=== PATIENT | female | born 1965 | race Caucasian/White ===

== ENCOUNTER 2017-04-08 19:47 | Emergency (ER) | payer OTHER ==
[~2017-04-08] VITALS: Ht 170.1 cm; Wt 79.4 kg
[2017-04-08] MEDS ORDERED: SYNTHROID RP0.088 MG PO (19:55)
[2017-04-08] MEDS ORDERED: ALPRAZOLAM0.5 M3 PO (19:55)
[2017-04-08] MEDS ORDERED: DULOXETINE HCL30 MG PO (19:55)
[2017-04-08] MEDS ORDERED: ESOMEPRAZOLE MA40 M1 PO (19:55)
[2017-04-08] MEDS ORDERED: DAILY VITE W/IR1 TA1 PO (19:55)
[2017-04-08] MEDS ORDERED: IBUPROFEN600 MG PO (19:55)
[2017-04-08] MEDS ORDERED: TIZANIDINE HCL4 MG PO (19:56)
[2017-04-08] MEDS ORDERED: ZINC SULFATE220 MG PO (19:56)
[2017-04-08] MEDS ORDERED: HYDROCODONE BIT1 T20 PO (19:56)
[2017-04-08] MEDS ORDERED: NAPROSYN500 MG PO (22:18)
[2017-04-08] MEDS ORDERED: HYDROCODONE BIT1 T11 PO (22:18)
== END 2017-04-08 23:12 | disposition home or self-care (01) ==
LOC: ED 19:47
DX: S20.212A Contusion of left front wall of thorax, initial encounter (principal); Z90.49 Acquired absence of other specified parts of digestive tract; Z79.899 Other long term (current) drug therapy; W50.1XXA Accidental kick by another person, initial encounter; Y93.89 Activity, other specified; Y92.9 Unspecified place or not applicable; Y99.9 Unspecified external cause status

== ENCOUNTER → 2018-03-29 | Outpatient (CLI) | payer OTHER ==
[~2018-03-29] MED LIST: ALPRAZOLAM0.5 M3 PO; DAILY VITE W/IR1 TA1 PO; DULOXETINE HCL30 MG PO; ESOMEPRAZOLE MA40 M1 PO; HYDROCODONE BIT1 T11 PO; HYDROCODONE BIT1 T20 PO; IBUPROFEN600 MG PO; NAPROSYN500 MG PO; SYNTHROID RP0.088 MG PO; TIZANIDINE HCL4 MG PO; ZINC SULFATE220 MG PO
== END | disposition home or self-care (01) ==
LOC: RAD 10:26
DX: M47.897 Other spondylosis, lumbosacral region (principal); M51.36 Other intervertebral disc degeneration, lumbar region

== ENCOUNTER → 2019-05-18 | Outpatient (CLI) | payer MEDICARE, MEDICAID ==
[~2019-05-18] MED LIST changes: +ADDERALL 10 MG10 MG PO; +AMOXICILLIN500 M2 PO; +B COMPLEX1 EACH PO; +CUPRIMINE250 MG PO; +DIFLUCAN150 MG PO; +FISH OIL 1,0001 EAC4 PO; +MEDROL DOSEPAK4 MG PO; +NORCO 5-325 TA1 EACH PO; +ROBITUSSIN DM 105 ML PO; +VITAMIN D-32000 UNIT PO; +Zofran4 MG SL
--- NOTE | ~2019-05-18 | EKG ---
[place], [place] ELECTROCARDIOGRAM REPORT NAME: FRANNIE BELTRÁN UNIT #: [id number] ROOM: DOCTOR: EPIPHANY DRAFT REPORT BIRTHDATE: [birth year] [facility] Test Date: 2019-05-18 Test Time: 16:06:46 Pat Name: FRANNIE BELTRÁN Department: Room: Gender: F [employer] Maker: Laura Dietz : 1965 Requested By: MEG [place] Order Number: [id number] Reading MD: Elbert Lopez MD Measurements Intervals [place] Rate: 78 P: 59 [place]: 140 QRS: 19 QRSD: 89 T: 51 QT: 373 QTc: 425 Interpretive Statements Sinus rhythm Nonspecific ST abnormalities Electronically Signed On 05-19-2019 5:04:47 PDT by Elbert Lopez MD CM:EKGRPT:ELECTROCARDIOGRAM REPORT [id number] MEG URIBE DRAFT REPORT MEG [place]
== END | disposition home or self-care (01) ==
LOC: CARD 15:33
DX: Z51.81 Encounter for therapeutic drug level monitoring (principal); Z79.899 Other long term (current) drug therapy

== ENCOUNTER 2019-12-05 18:37 | Emergency (ER) | payer MEDICARE, MEDICAID ==
[~2019-12-05] VITALS: Ht 170.1 cm; Wt 81.6 kg
[2019-12-05 19:12] LABS: URINE AMPHETAMINES > 1000 (1000ng/ml); URINE BARBITURATES < 200 (200ng/ml); URINE BENZODIAZEPINES > 200 (200ng/ml); URINE CANNABINOIDS (THC) < 50 (50ng/ml); URINE COCAINE < 300 (300ng/ml); URINE METHADONE < 300 (300ng/ml); URINE OPIATES < 300 (300ng/ml); URINE PHENCYCLIDINE < 25 (25ng/ml)
[2019-12-05 19:31] LABS: COLOR YELLOW (YELLOW)
[2019-12-05 19:32] LABS: BILIRUBIN NEGATIVE (NEGATIVE); BLOOD 3+ (NEGATIVE); CLARITY SL CLOUDY (CLEAR); GLUCOSE NEGATIVE (NEGATIVE); KETONE TRACE (NEGATIVE); LEUKO ESTERASE TRACE (NEGATIVE); NITRITE NEGATIVE (NEGATIVE); UROBILINOGEN 0.2 E.U./dl (0.2-1.0)
[2019-12-05 19:42] LABS: BACTERIA 3+; COARSE GRANULAR CAST 0-2; MUCOUS TRACE; RBC 0-2 rbc/hpf (0-2); WBC 16-20 wbc/hpf (0-5)
[2019-12-05 20:06] LABS: BASO % 0.4 % (0.0-1.0); HEMOGLOBIN 14.5 g/dl (12.0-16.0); LYMPH # 2.9 10*3/uL (1.3-4.4); LYMPH % 29.7 % (27.0-41.0); MEAN CELL VOLUME 95.7 fl (81.0-99.0); MEAN CORPUSCULAR HGB 31.5 pg (27.0-31.0); MONO # 0.7 10*3/uL (0.1-1.0); MONO % 6.7 % (3.0-9.0); NEUT # 6.2 10*3/uL (2.3-7.9); PLATELET COUNT AUTOMATED 340 10*3/uL (130-400); RED CELL DISTRI WIDTH 11.9 % (0-14.5); WHITE BLOOD COUNT 9.8 10*3/uL (4.8-10.8)
[2019-12-05 20:26] LABS: ALBUMIN 4.2 gm/dl (3.1-4.5); ALKALINE PHOSPHATASE 85 U/L (45-117); BUN 9 mg/dl (7-24); CHLORIDE 105 mmol/L (98-107); CREATININE 1.12 mg/dL (0.55-1.02); POTASSIUM 4.1 mmol/L (3.5-5.1); SGOT/AST 75 IU/L (3-35); SGPT/ALT 47 U/L (12-78); SODIUM 139 mmol/L (136-145); TOTAL PROTEIN 8.7 gm/dL (6.4-8.2)
[2019-12-05] MEDS ORDERED: KENALOG 0.1%80 GM T (22:17)
[2019-12-05] MEDS ORDERED: SYNTHROID,LEVO88 MCG PO (22:17)
== END 2019-12-05 22:25 | disposition home or self-care (01) ==
LOC: ED 18:37
PROVIDERS: Emergency Medicine
DX: L30.1 Dyshidrosis [pompholyx] (principal); E03.9 Hypothyroidism, unspecified; E83.01 Wilson's disease; F22 Delusional disorders; F41.9 Anxiety disorder, unspecified; K21.9 Gastro-esophageal reflux disease without esophagitis; Z79.899 Other long term (current) drug therapy

== ENCOUNTER → 2020-10-18 | Outpatient (CLI) | payer MEDICARE, MEDICAID ==
[~2020-10-18] MED LIST changes: +KENALOG 0.1%80 GM T; +SYNTHROID,LEVO88 MCG PO
== END | disposition home or self-care (01) ==
LOC: US 10-03 10:30
PROVIDERS: ATTEND Nurse Practitioner Family
DX: E83.01 Wilson's disease (principal); R94.5 Abnormal results of liver function studies

== ENCOUNTER → 2022-07-08 | Outpatient (CLI) | payer OTHER | END | disposition home or self-care (01) | LOC: MAMMO 11:30 | PROVIDERS: ATTEND Internal Medicine | DX: Z12.31 Encounter for screening mammogram for malignant neoplasm of breast (principal) ==

== ENCOUNTER → 2023-01-21 | Outpatient (CLI) | payer OTHER ==
[2023-01-21 14:26] LABS: URINE AMPHETAMINES Negative (1000ng/ml); URINE BARBITURATES Negative (200ng/ml); URINE BENZODIAZEPINES Negative (200ng/ml); URINE CANNABINOIDS (THC) Negative (50ng/ml); URINE COCAINE Negative (300ng/ml); URINE METHADONE Negative (300ng/ml); URINE OPIATES Negative (300ng/ml); URINE PHENCYCLIDINE Negative (25ng/ml)
== END | disposition home or self-care (01) ==
LOC: LAB 13:34
PROVIDERS: ATTEND Psychiatry & Neurology Psychiatry
DX: R82.5 Elevated urine levels of drugs, medicaments and biological substances (principal); Z79.899 Other long term (current) drug therapy

== ENCOUNTER → 2023-12-01 | Outpatient (CLI) | payer OTHER ==
[2023-12-01 09:08] LABS: BASO % 0.5 % (0.0-1.0); EOS # 0.2 10*3/uL (0.0-0.4); EOS % 2.4 % (1.0-4.0); HEMATOCRIT 45.2 % (37.0-47.0); LYMPH # 3.9 10*3/uL (1.3-4.4); LYMPH % 48.5 % (27.0-41.0); MEAN CELL VOLUME 96.4 fl (81.0-99.0); MEAN CORPUSCULAR HGB 30.3 pg (27.0-31.0); MEAN CORPUSCULAR HGB CONC 31.4 g/dl (33.0-37.0); MONO # 0.5 10*3/uL (0.1-1.0); MONO % 5.8 % (3.0-9.0); NEUT # 3.4 10*3/uL (2.3-7.9); NEUT % 42.7 % (47.0-73.0); PLATELET COUNT AUTOMATED 278 10*3/uL (130-400); RED BLOOD COUNT 4.69 10*6/uL (4.10-5.10); RED CELL DISTRI WIDTH 11.9 % (0-14.5)
[2023-12-01 09:40] LABS: ALKALINE PHOSPHATASE 67 U/L (46-116); BUN 11 mg/dl (9-23); CHLORIDE 104 mmol/L (98-107); CHOLESTEROL 315 mg/dL (<200); LDL CHOLESTEROL 184 mg/dL (9-159); POTASSIUM 4.6 mmol/L (3.4-5.1); SGPT/ALT 30 U/L (5-49); TOTAL PROTEIN 8.3 gm/dL (6.0-8.0); TRIGLYCERIDES 253 mg/dl (<150)
== END | disposition home or self-care (01) ==
LOC: LAB 08:42
PROVIDERS: ATTEND Nurse Practitioner Family
DX: E03.9 Hypothyroidism, unspecified (principal); E78.2 Mixed hyperlipidemia; E66.9 Obesity, unspecified; E55.9 Vitamin D deficiency, unspecified; Z79.899 Other long term (current) drug therapy

== ENCOUNTER → 2025-04-02 | Outpatient (CLI) | payer OTHER, MEDICAID | END | disposition home or self-care (01) | LOC: MAMMO 02:58 | PROVIDERS: ATTEND Family Medicine | DX: Z12.31 Encounter for screening mammogram for malignant neoplasm of breast (principal); R92.323 Mammographic fibroglandular density, bilateral breasts ==